=== PATIENT | female | born 1970 | race Caucasian/White ===

== ENCOUNTER 2023-05-29 21:38 | Emergency (ER) | payer OTHER, SELFPAY ==
--- NOTE | ~2023-05-29 | XR_ITS ---
EXAMINATION: XR FOOT, LEFT CLINICAL INFORMATION: Toe pain. COMPARISON: None available. TECHNIQUE: 3 views of the left foot. FINDINGS: Oblique intra-articular fracture involving the middle phalange of the fifth toe. There is a fracture of the medial side of the bone involving the PIP joint of the fifth toe. Fracture fragment moderately displaced. There is no dislocation. XR/XR foot LT 2V IMPRESSION: Oblique intra-articular fracture of the middle phalange of the fifth toe involving the PIP joint.
[2023-05-29 21:46] VITALS: BP 161/82; PULSE 70; RESP 16; TEMP 36; O2SAT 98; BMI 25.2
[2023-05-29 23:10] VITALS: BP 150/74; PULSE 68; RESP 16; TEMP 36.1; O2SAT 97
--- NOTE | 2023-05-30 00:21 | ED.LOWEXIN ---
HPI - Extremity Injury (Lower) General Chief Complaint: Extremity Injury, Lower Stated Complaint: ?broken toe left foot Time Seen by Provider: 05/29/23 23:42 Source: patient and family Mode of arrival: ambulatory History of Present Illness HPI Narrative: 52-year-old female presents with playing around with her daughter and accidentally hitting the wall with her left foot catching the 4th and 5th toe with significant pain afterwards. Related Data Allergies Allergy/AdvReac Type Severity Reaction Status Date / Time No Known Allergies Allergy Verified 05/29/23 21:51 Review of Systems Review of Systems: Pertinent positives and negatives as stated in HPI [facility] Past Medical History Source: nursing notes reviewed Social History Social History Alcohol intake: current Alcohol intake frequency: a few times a month Smoked in Last 30 Days: No Use of substances other than those prescribed or required for medical reasons: No Advance Directives: No Advance Directives Information Provided: No Patient : No Physical Exam Vital Signs: Vital Signs: Last Vital Signs Temp 96.8 F 05/29/23 21:46 Pulse 70 05/29/23 21:46 Resp 16 05/29/23 21:46 BP 161/82 H 05/29/23 21:46 Pulse Ox 98 05/29/23 21:46 O2 Del Method Room Air 05/29/23 21:46 BMI result Body Mass Index 25.2 VITAL SIGNS: Reviewed. GENERAL: Well developed, well nourished, in no acute distress. HEAD: Normocephalic/atraumatic EYES: PERRLA, EOMI LUNGS: Normal breath sounds. No adventitious sounds or accessory muscle use. SpO2<98> CARDIOVASCULAR: Regular rate and rhythm without noted murmurs ABDOMEN: Soft, non-tender, non-distended with bowel sounds. MUSCULOSKELETAL: No tenderness, deformities, or effusions noted on gross inspection. EXTREMITIES: No cyanosis, clubbing or edema. LEFT FOOT: No obvious deformity other than slight widening between the 4th and 3rd toe on left foot, no ecchymosis, otherwise neurovascular is intact SKIN: Inspection of the skin reveals no rashes NEUROLOGIC: Alert and oriented x 4. Strength and sensation to light touch were grossly intact x 4. Medications Administered Discontinued Medications Generic Name Dose Route Start Last Admin Trade Name Freq PRN Reason Stop Dose Admin Acetaminophen 975 mg 05/30/23 00:23 05/30/23 00:28 Acetaminophen 325 Mg Tablet PO 05/30/23 00:24 975 mg ONCE ONE Administration Ibuprofen 400 mg 05/30/23 00:23 05/30/23 00:34 Ibuprofen 400 Mg Tablet PO 05/30/23 00:24 Not Given ONCE ONE Medical Decision Making Medical Decision Making MDM Narrative: 52-year-old female with history and clinical presentation, DDX: Dislocation, fracture I reviewed imaging which demonstrates obvious fracture and otherwise agree with radiology impression. Postsurgical shoe was put in place and patient was provided with combination analgesics and discharged home in stable condition. Differential Diagnosis Please see the discussion above Radiology Impression Radiologist Impression: My interpretation is in agreement with radiology's impression. Discharge Plan Discharge Clinical Impression: Closed fracture of toe Patient Disposition: Home, Self-Care Instructions: Toe Fracture (ED), Post Surgical Shoe (ED) Additional Instructions: 1. Apply ice to unexposed skin for 5-10 minutes, 3 to 4 times a day. Elevate when possible. 2. Recommend wearing the postsurgical shoe for 1 week, the goal is to protect the toe from being unnecessarily bumped. You will want to limit any running, jumping. Oblique intra-articular fracture of the middle phalange of the fifth toe involving the PIP joint. Interventions: ED Discharge Assessment Last Done: 05/30/23 00:40
[2023-05-30] MEDS: Acetaminophen 325 MG TABLET 975 MG PO (00:28)
== END 2023-05-30 00:41 | disposition home or self-care (01) ==
PROVIDERS: Emergency Provider Student in an Organized Health Care Education/Training Program
DX: M79.675 Pain in left toe(s) (principal); S92.912A Unspecified fracture of left toe(s), initial encounter for closed fracture; W22.01XA Walked into wall, initial encounter; Y93.89 Activity, other specified; Y92.89 Other specified places as the place of occurrence of the external cause; Y99.9 Unspecified external cause status
CPT/HCPCS: 73620; 99283; 99284